=== PATIENT | male | born 1960 | race Caucasian/White ===

== ENCOUNTER 2017-10-08 18:39 | Emergency (ER) | payer OTHER ==
[~2017-10-08] VITALS: Ht 185.4 cm; Wt 81.6 kg
--- NOTE | 2017-10-08 19:07 | NUR ---
RECEIVED REPORT FROM RIVKA SOLARES.
--- NOTE | 2017-10-08 19:08 | NUR ---
[id number] FROM HOME FOR N/V X 2 DAYS, STARTED CHEMO LAST FRIDAY FOR THROAT CA. PT AOX3 RR EVEN AND UNLABORED. NO SOB NOTED. NAD NOTED. NO NVD AT THIS TIME. PT GOWNED AND PLACED ON MONITOR WAITING FOR MD DUENAS. PT NOTED WITH PICC LINE ON BRI. INTACT AND PATENT. NO S/S INFECTION OR INFILATION NOTED. PAC JEANNE AT BEDSIDE FOR EVAL.
[2017-10-08] MEDS ORDERED: PANTOPRAZOLE 40 MG VIAL IV ONE (19:30)
[2017-10-08] MEDS ORDERED: IPRATROPIUM NEB FS 0.5 MG/2.5 ML AMPUL.NEB NEB ONE (19:30)
[2017-10-08] MEDS ORDERED: HYDROMORPHONE INJ 2 MG/ML DISP.SYRIN IV ONE (19:30)
[2017-10-08] MEDS ORDERED: ALBUTEROL FS 2.5 MG/3 ML VIAL.NEB NEB ONE (19:30)
[2017-10-08] MEDS ORDERED: IV NS 0.9% 1,000 ML BAG IV ONE (19:30)
[2017-10-08] MEDS ORDERED: ONDANSETRON HCL/PF 4 MG/2 ML VIAL IVP ONE (19:30)
[2017-10-08] MEDS ORDERED: ONDANSETRON HCL/PF 4 MG/2 ML VIAL ONE (19:44)
[2017-10-08] MEDS ORDERED: PANTOPRAZOLE 40 MG VIAL ONE (19:44)
[2017-10-08] MEDS ORDERED: HYDROMORPHONE INJ 0.5 MG/0.5 ML SYRINGE ONE (19:44)
--- NOTE | 2017-10-08 19:45 | NUR ---
LAB AT BEDSIDE FOR BLOOD DRAW
[2017-10-08] MEDS ORDERED: IPRATROPIUM NEB FS 0.5 MG/2.5 ML AMPUL.NEB ONE (19:47)
[2017-10-08] MEDS ORDERED: ALBUTEROL FS 2.5 MG/3 ML VIAL.NEB ONE (19:47)
--- NOTE | 2017-10-08 19:49 | NUR ---
RT AT BEDSIDE FOR NEBS
[2017-10-08 20:08] LABS: EOSINOPHILS % (AUTO) 2.1 % (0.0-6.0); HEMATOCRIT 39 % (39-51); HEMOGLOBIN 13.4 g/dL (13.5-17.5); LYMPHOCYTES # (AUTO) 0.4 /CMM (0.8-4.8); LYMPHOCYTES % (AUTO) 49.3 % (20.0-44.0); MEAN CORPUSCULAR HEMOGLOBIN 31 PG (26.0-33.0); MEAN CORPUSCULAR HGB CONC 34 g/dl (31.0-36.0); MEAN CORPUSCULAR VOLUME 92 fL (80-96); MONOCYTES # (AUTO) 0.1 /CMM (0.1-1.30); MONOCYTES % (AUTO) 18.7 % (2.0-12.0); NEUTROPHILS # (AUTO) 0.2 /CMM (1.8-8.9); NEUTROPHILS % (AUTO) 28.9 % (43.0-81.0); PLATELET COUNT (AUTO) 122 /CMM (150-450); RDW COEFFICIENT OF VARIATION 12.7 (11.5-15.0); RED BLOOD CELL COUNT(AUTO) 4.29 MIL/uL (4.5-6.0)
[2017-10-08 20:10] LABS: INR 1.12 (0.85-1.15)
[2017-10-08 20:12] LABS: ALBUMIN 3.1 g/dL (3.4-5.0); BILIRUBIN,DIRECT 0.2 mg/dL (0.0-0.2); CALCIUM, SERUM 8.3 mg/dL (8.5-10.1); CREATININE 1.2 mg/dL (0.6-1.3); POTASSIUM 3.4 mmol/L (3.5-5.1)
[2017-10-08 20:16] LABS: WHITE BLOOD COUNT (AUTO) 0.8 K/uL (4.3-11.0)
[2017-10-08 20:38] LABS: BAND % (MANUAL) 2 % (0.0-5.0); EOSINOPHILS % (MANUAL) 2 % (0-4); LYMPHOCYTES % (MANUAL) 58 % (16-48); MONOCYTES % (MANUAL) 24 % (0-11.0); NEUTROPHILS % (MANUAL) 14 (42-76)
[2017-10-08] MEDS ORDERED: LIDOCAINE VISCOUS 2% UD 15 ML UDC MM ONE (21:30)
[2017-10-08] MEDS ORDERED: MAG HYDROX/AL HYDROX/SIMETH 30 ML UDC PO ONE (21:30)
[2017-10-08] MEDS ORDERED: MAG HYDROX/AL HYDROX/SIMETH 30 ML UDC ONE (21:59)
[2017-10-08] MEDS ORDERED: LIDOCAINE VISCOUS 2% UD 15 ML UDC ONE (21:59)
--- NOTE | 2017-10-08 23:32 | NUR ---
Patient is resting comfortably in bed with eyes closed. Easily aroused. VSS
--- NOTE | 2017-10-09 00:28 | NUR ---
SPOKE TO RAFAT. PER RAFAT WILL SPEAKING TO DR. TAVARES REGARDING ADMISSION.
--- NOTE | 2017-10-09 00:37 | NUR ---
REPORT GIVEN TO RIVKA CASTELLANOS FOR TELE BED [phone]
[2017-10-09] MEDS ORDERED: METOCLOPRAMIDE HCL 10 MG/2 ML VIAL IV ONE (01:00)
--- NOTE | 2017-10-09 01:03 | NUR ---
CALLED RN SUP FOR MEDICATION.
[2017-10-09] MEDS ORDERED: METOCLOPRAMIDE HCL 10 MG/2 ML VIAL ONE (01:21)
--- NOTE | 2017-10-09 01:25 | NUR ---
RECEIVED MEDICATION FROM RIVKA SUP
--- NOTE | 2017-10-09 01:43 | NUR ---
[facility]. BED [id number] RIVKA GRAHAM [phone]
--- NOTE | 2017-10-09 01:49 | NUR ---
REPORT GIVEN TO RIVKA GOLDEN ON BEHALF OF GRAHAM. PENDING ETA
--- NOTE | 2017-10-09 02:33 | NUR ---
AMBULANCE ETA: [id number]
[2017-10-09 03:54] VITALS: BP 120/71
--- NOTE | 2017-10-09 03:55 | NUR ---
REPORT GIVEN TO EMT AMBULANCE FOR [facility]. PT AWARE OF TRANSFER TO [facility]. PICC LINE INTACT AND PATENT. NO S/S INFECTION OF INFILTRATION NOTED. PT WITH ALL PERSONAL BELONGINGS. TRANSFER PAPER WORK WITH EMT, PT TRANSFERRED VIA GURNEY TO ACCEPTING FACILITY. PER AMBULANCE TOOK OVER CARE
== END 2017-10-09 04:02 | disposition short-term general hospital (02) ==
LOC: ER 18:40
DX: R11.2 Nausea with vomiting, unspecified (principal); E86.0 Dehydration; I10 Essential (primary) hypertension; C32.9 Malignant neoplasm of larynx, unspecified; K44.9 Diaphragmatic hernia without obstruction or gangrene; Z85.21 Personal history of malignant neoplasm of larynx
CPT/HCPCS: 36415 ×2; 71045; 80048; 80076; 83690; 83735; 84484; 85025; 85730; 86850; 87081; 93005; 94640; 96361; 96374; 96375; 99285; A4606; C9113; J2405; J2765; J7030; Z7610